=== PATIENT | female | born 1950 | race Native Hawaiian/Other Pacific Islander ===

== ENCOUNTER 2018-01-02 13:02 | Outpatient (CLI) | payer BC, OTHER | END 2018-01-02 19:39 | disposition home or self-care (01) | LOC: RAD 13:02 | DX: M85.89 Other specified disorders of bone density and structure, multiple sites (principal) ==

== ENCOUNTER 2018-06-13 07:56 | Outpatient (CLI) | payer BC, OTHER | END 2018-06-13 23:37 | disposition home or self-care (01) | LOC: NM 07:56 | DX: E83.52 Hypercalcemia (principal) | CPT/HCPCS: A9561 ==

== ENCOUNTER 2019-08-13 14:30 | Outpatient (CLI) | payer BC, OTHER | END 2019-08-13 19:41 | disposition home or self-care (01) | LOC: RAD 14:30 | DX: E83.52 Hypercalcemia (principal); M85.89 Other specified disorders of bone density and structure, multiple sites ==

== ENCOUNTER 2022-05-19 08:45 | Outpatient (CLI) | payer BC, OTHER | END 2022-05-19 18:57 | disposition home or self-care (01) | LOC: RAD 08:45 | PROVIDERS: ATTEND Nurse Practitioner Family | DX: E55.9 Vitamin D deficiency, unspecified (principal); E56.8 Deficiency of other vitamins; M06.09 Rheumatoid arthritis without rheumatoid factor, multiple sites; M85.89 Other specified disorders of bone density and structure, multiple sites; Z79.899 Other long term (current) drug therapy ==